=== PATIENT | female | born 1955 | race Caucasian/White ===

== ENCOUNTER → 2020-06-24 | Outpatient (CLI) | payer MEDICARE, BC ==
--- NOTE | 2020-07-01 13:08 | PATH ---
[address] [address] PATHOLOGY RPT PROCEDURE Name: OBINNADIXON Graves Room: [facility].#: [id number] Admission: 06/24/20 Date of : 51 Discharge: Report #: [id number] Path Case #: [id number] [facility] Accession Number: [id number] . 01 Material submitted: . breast - RIGHT BREAST BIOPSY. Modifiers: right . 01 Clinical history: . US/R BREAST BIOPSY/ABN MAMMO BREAST MASS RIGHT BREAST MASS 8:00 C CFN 0.77X0.58X0.70 . 02 Diagnosis: Breast mass "right 8:00, 3 cm from nipple", needle biopsy: - INVASIVE DUCTAL CARCINOMA, WITH LOBULAR FEATURES, GRADE I (TOTAL SCORE 5/9). - Greatest tumor dimension at least 8 mm. - Perineural invasion present. - Fibrocystic change, including usual ductal hyperplasia and apocrine metaplasia. - Focal microcalcification - Please see cancer case summary below. (LEXIS:chetan; 06/30/2020) . . Surgical Pathology Cancer Case Summary Version: Breast invasive biopsy 1.1.0.0 Protocol posting date: May 2019 . INVASIVE CARCINOMA OF THE BREAST: Biopsy . Procedure ___ Needle biopsy . Specimen Laterality ___ Right . Tumor Site ___ Clock position: 8 o'clock ___ Distance from nipple (centimeters): 3 cm . Tumor Size ___ Greatest dimension of largest invasive focus >1 mm: at least 8 mm . Histologic Type ___ Invasive carcinoma with mixed ductal and lobular features . Histologic Grade ([place] Histologic Score) Glandular (Acinar)/Tubular Differentiation ___ Score 2 (10% to 75% of tumor area forming glandular/[place] [address] PATHOLOGY RPT PROCEDURE Name: DIXON YEBOAH Room: [facility]#: [id number] Admission: 06/24/20 Date of : 51 Discharge: Report #: [id number] Path Case #: [id number] structures) . Nuclear Pleomorphism ___ Score 2 (cells larger than normal with open vesicular nuclei, visible nucleoli, and moderate variability in both size and shape) . Mitotic Rate ___ Score 1 . Overall Grade ___ Grade 1 (score 5) . Ductal Carcinoma In Situ (DCIS) ___ Not identified . Lymphovascular Invasion ___ Not identified . Additional Pathologic Findings Specify: Perineural invasion present . Microcalcifications ___ Present in invasive carcinoma ___ Present in non-neoplastic tissue . Biomarker Studies ___ Will be ordered on block A2 and the results subject to an addendum report . (GRISELK:fairing worker; 06/30/2020) . . The diagnosis is conveyed to Dr. Nikki Barnes on 06/30/2020 at approximately 12:50. MBR 07/01/2020 1056 Local . 02 Comment: The case was seen in co-review with Dr. Spring Ferrer, who concurs with the above diagnosis. (MLK:fairing worker; 06/30/2020) . 02 Electronically signed: . Pretty Patel MD, Pathologist NPI- [id number] . 01 Gross description: . Received in formalin labeled "Dixon Yeboah, right breast biopsy" are multiple cylindrical soft tissue cores measuring in aggregate 4.6 x 3.[address] [place] [address] PATHOLOGY RPT PROCEDURE Name: DIXON YEBOAH Room: [facility]#: [id number] Admission: 06/24/20 Date of : 51 Discharge: Report #: [id number] Path Case #: [id number] 0.4 cm. The specimen is submitted entirely in cassettes A1-A3. The specimen is removed from the patient at 0940 and placed in formalin at 0953 on 06/24/2020. The specimen is removed from formalin at 1850 on 06/24/2020. The specimen is in formalin for greater than 6 hours and less than 72 hours. ([facility] [place]; 06/24/2020) SY/SYC 06/24/2020 1644 Local . 02 Microscopic: . Immunohistochemical stain results (properly controlled): E-cadherin (A2 and A3) - highlights cytoplasmic membrane of all malignant cells. (MLK:chetan; 06/30/2020) . 02 Pathologist provided ICD-10: C50.911 . 02 CPT . 213964, U62652 Specimen Comment: A courtesy copy of this report has been sent to [phone], [phone] Specimen Comment: [phone], Specimen Comment: Report sent to ,DR PATRICIA / ENOC Performed at: 01 [facility] [address] [facility] [address], [place] [id number] MD Dominick Viramontes MD Phone: [phone] Performed at: 02 [facility] [address] [id number] MD Juno Borja MD Phone: [phone]
== END | disposition home or self-care (01) ==
LOC: M.ULTRA 08:10
PROVIDERS: ATTEND Surgery
DX: C50.911 Malignant neoplasm of unspecified site of right female breast (principal); N60.11 Diffuse cystic mastopathy of right breast; N62 Hypertrophy of breast; N60.81 Other benign mammary dysplasias of right breast; R92.1 Mammographic calcification found on diagnostic imaging of breast

== ENCOUNTER → 2020-08-15 | Outpatient (CLI) | payer MEDICARE, BC | LOC: M.LAB 10:10 → M.MRI 11:30 | PROVIDERS: ATTEND Surgery | DX: C50.919 Malignant neoplasm of unspecified site of unspecified female breast (principal) ==

== ENCOUNTER → 2020-09-07 | Outpatient (CLI) | payer MEDICARE, BC ==
--- NOTE | 2020-09-20 15:08 | PATH ---
[address] [address] PATHOLOGY RPT PROCEDURE Name: FAYBRADDIXON HERNANDEZ Room: [facility] Claire#: [id number] Admission: 09/07/20 Date of : 51 Discharge: Report #: [id number] Path Case #: [id number] [facility] Accession Number: [id number] . 01 Material submitted: . breast - LEFT BREAST BIOPSY. Modifiers: left . 01 Clinical history: . US/LT BREAST/MAMMATOME BX/ABNL MRI BREAST MASS SUBAREOLAR 0.82 X 0.72 X 0.66 . 02 Diagnosis: Breast "left subareolar breast mass": - Fibrocystic changes including usual ductal hyperplasia, apocrine metaplasia, duct ectasia, chronic inflammation and fibrosis. - Luminal microcalcifications. - Negative for atypia and malignancy. (LEXIS:pablito; 09/20/2020) QMS 09/20/2020 1447 Local . 02 Comment: The case is seen in co-review with Dr. Triston Arora, who concurs with the above diagnosis. . 02 Electronically signed: . Pretty Patel MD, Pathologist NPI- [id number] . 01 Gross description: . The specimen is received in formalin, labeled "Dixon Yeboah, left breast biopsy" additionally designated as subareolar on the requisition received as multiple soft burton-yellow tissue cores measuring up to 2.5 cm x 0.3 cm. The specimen is entirely submitted A1-A3. The specimen is removed from the patient at 0950 hours and placed in formalin at 0952 hours on Monday, September 07, 2020. The specimen is removed from formalin at 11:30pm. The specimen is in formalin for greater than 6 hours and less than 72 hours. ([facility]; 09/07/2020) ALEX/ALEX 09/20/2020 0715 Local . 02 Microscopic: . Immunohistochemical stain results (properly controlled): . Block A1: CK5/6 - area of focal decreased staining within area of ductal hyperplasia. Calponin - area of decreased staining in area of duct[place] [address] PATHOLOGY RPT PROCEDURE Name: DIXON YEBOAH Room: [facility]#: [id number] Admission: 09/07/20 Date of : 51 Discharge: Report #: [id number] Path Case #: [id number] p63 - area of decreased staining within ductal hyperplasia. Myosin - slightly decreased staining in area of ductal hyperplasia. . Block A3: CK5/6 - focal area of decreased absent staining within ductal hyperplasia. Calponin - slightly decreased staining in area of ductal hyperplasia. p63 - decreased staining in area of ductal hyperplasia. Myosin - slightly reduced staining in area of ductal hyperplasia. . (MLK:pablito; 09/20/2020) . 02 Pathologist provided ICD-10: N60.82, N60.12, N62, N60.42, N60.32 . 02 CPT . 920032, Y09542, G39282 Specimen Comment: A courtesy copy of this report has been sent to [phone] Specimen Comment: [phone], Specimen Comment: Report sent to ,DR STUBBS / DR PATRICIA Performed at: 01 [facility] [address] [facility] [address], [place] [id number] MD Dominick Viramontes MD Phone: [phone] Performed at: 02 [facility] [address] [id number] MD Juno Borja MD Phone: [phone]
== END | disposition home or self-care (01) ==
LOC: M.ULTRA 08-24 10:35
PROVIDERS: ATTEND Surgery
DX: N60.82 Other benign mammary dysplasias of left breast (principal); N60.42 Mammary duct ectasia of left breast; N60.32 Fibrosclerosis of left breast; N62 Hypertrophy of breast; R92.1 Mammographic calcification found on diagnostic imaging of breast

== ENCOUNTER → 2021-03-07 | Outpatient (CLI) | payer MEDICARE, BC ==
[2021-03-07 11:11] LABS: ABSOLUTE BASOPHILS 0.1 thou/uL (0.0-0.2); ABSOLUTE EOSINOPHILS 0.2 thou/uL (0.0-0.7); ABSOLUTE MONOCYTES 0.6 thou/uL (0.0-1.2); ABSOLUTE NEUTROPHILS 3.7 thou/uL (1.6-8.1); BASOPHILS 0.8 %; EOSINOPHILS 3.2 %; HEMOGLOBIN 12.2 gm/dL (12.0-15.0); LYMPHOCYTES 30.3 %; MCH 30.5 pg (26.0-34.0); MCHC 34.1 g/dL (28.0-37.0); MCV 89.5 fL (80.0-100.0); MONOCYTES 8.7 %; MPV 7.2 fl. (7.2-11.1); NUCLEATED RBCS 0 /100WBC; PLATELET COUNT* 259 thou/uL (150-400); RBC 4.02 mil/uL (4.20-5.00); RDW-CV 12.6 % (10.5-14.5); WBC 6.6 thou/uL (4.0-11.0)
[2021-03-07 11:59] LABS: ALBUMIN 3.6 g/dL (3.4-5.0); CALCIUM 8.9 mg/dL (8.5-10.1); CREATININE 0.9 mg/dL (0.6-1.3); POTASSIUM 4.8 mmol/L (3.5-5.1); TOTAL BILIRUBIN 0.3 mg/dL (<0.1-1.0); TOTAL PROTEIN 6.8 g/dL (6.4-8.2)
== END ==
LOC: M.RAD 10:48
PROVIDERS: ATTEND Radiology Radiation Oncology
DX: C50.511 Malignant neoplasm of lower-outer quadrant of right female breast (principal); Z17.0 Estrogen receptor positive status [ER+]